=== PATIENT | male | born 1975 | race Caucasian/White ===

== ENCOUNTER 2018-08-01 01:36 | Emergency (ER) | payer OTHER ==
[~2018-08-01] VITALS: Ht 167.6 cm; Wt 64.3 kg
[2018-08-01 01:45] VITALS: Ht 167.6 cm; Wt 64.3 kg
[2018-08-01 02:56] VITALS: BP 122/78; PULSE 80; RESP 14
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
== END 2018-08-01 02:56 ==
LOC: EDBD → E/R 01:36 → MERGE 01:36 → E/R 02:56
DX: S01.112A Laceration without foreign body of left eyelid and periocular area, initial encounter (principal); Y08.89XA Assault by other specified means, initial encounter